=== PATIENT | male | born 1940 | race Caucasian/White ===

== ENCOUNTER 2021-07-24 23:28 | Observation (INO) ==
[2021-07-25] MEDS ORDERED: *HR* OxyCODONE Immed Rel 5 MG TABLET PO PRN (03:37)
[2021-07-25] MEDS ORDERED: *HR* HYDROcodone/Acet 5/325 mg TABLET PO PRN (03:37)
[2021-07-25] MEDS ORDERED: Ondansetron ODT 4 MG TAB.RAPDIS SL PRN (03:37)
[2021-07-25] MEDS ORDERED: Naloxone 0.4 MG/ML INJ IVP PRN (03:37)
[2021-07-25] MEDS ORDERED: Melatonin 3 MG TABLET PO PRN (03:37)
[2021-07-25] MEDS ORDERED: Acetaminophen 325 MG TABLET PO PRN (03:37)
[2021-07-25 05:51] LABS: Basophils % 0.3 %; Hematocrit 34.6 % (37.5-50.1); Hemoglobin 11.8 g/dL (12.9-16.9); Immature Granulocytes % 0.6 % (0-4); Immature Platelets 2.3 % (1.1-6.1); Lymphocytes # 0.7 K/mcL (0.6-4.6); Lymphocytes % 20.4 %; Mean Corpuscular HGB Conc 34.1 g/dL (31.6-35.5); Mean Corpuscular Hemoglobin 31.2 pg (28.0-33.3); Mean Corpuscular Volume 91.5 fL (83.0-100.0); Mean Platelet Volume 9.5 fL (9.4-12.4); Monocytes # 0.3 K/mcL (0.0-1.3); Monocytes % 9.6 %; Neutrophils # 2.4 K/mcL (1.6-8.9); Platelet Count 106 K/mcL (140-400); Red Blood Count 3.78 M/mcL (4.19-5.50); Red Cell Distribution Width 15.8 % (11.5-14.5); Segmented Neutrophils % 69.1 %; White Blood Count 3.4 K/mcL (4.3-11.1)
[2021-07-25 05:59] LABS: INR 1.3
[2021-07-25 06:01] LABS: Activated Partial Thrombo Time 39.5 Seconds (26.0-36.0)
[2021-07-25 06:09] LABS: Alanine Aminotransferase 14 Units/L (7-52); Albumin 2.4 g/dL (3.5-5.7); Albumin/Globulin Ratio 0.7 (1.1-2.2); Alkaline Phosphatase 60 Units/L (34-104); Aspartate Amino Transferase 26 Units/L (13-39); BUN/Creatinine Ratio 20 (6-26); Bilirubin,Total 0.7 mg/dL (0.3-1.0); Blood Urea Nitrogen 21 mg/dL (8-23); Calcium 7.8 mg/dL (8.6-10.3); Carbon Dioxide 34 mEq/L (23-29); Chloride 94 mEq/L (98-107); Globulin 3.3 g/dL (2.4-3.5); Glucose 92 mg/dL (70-105); Osmolality,Calculated 283 (280-300); Potassium 3.9 mEq/L (3.5-5.1); Sodium 135 mEq/L (136-145); Total Protein 5.7 g/dL (6.4-8.9); eGFR For African Americans > 60 (> 60); eGFR For Non-African Americans > 60 (> 60)
[2021-07-25 06:25] LABS: Adenovirus F 40/41 PCR Not detected (Not detect); Astrovirus PCR Not detected (Not detect); Campylobacter by PCR Not detected (Not detect); Cryptosporidium by PCR Not detected (Not detect); Cyclospora cayetanensis PCR Not detected (Not detect); E. coli O157 by PCR Not detected (Not detect); Entamoeba histolytica PCR Not detected (Not detect); Enteroaggregative E.coli(EAEC) Not detected (Not detect); Enteropathogenic E.coli(EPEC) Not detected (Not detect); Enterotoxigenic E.coli (ETEC) Not detected (Not detect); Giardia lamblia PCR Not detected (Not detect); Norovirus GI/GII PCR Not detected (Not detect); Plesiomonas shigelloides PCR Not detected (Not detect); Rotavirus A PCR Not detected (Not detect); Salmonella PCR Not detected (Not detect); Sapovirus PCR Not detected (Not detect); Shig/EnteroinvasiveE coli EIEC Not detected (Not detect); Shigalike tox-prod E coli STEC Not detected (Not detect); Vibrio PCR Not detected (Not detect); Vibrio cholerae PCR Not detected (Not detect); Yersinia enterocolitica PCR Not detected (Not detect)
[2021-07-25 06:26] LABS: C.difficile Toxin A/B Gene PCR DETECTED (Not detect)
[2021-07-25] MEDS ORDERED: *HR* HYDROcodone/Acet 5/325 mg TABLET GTUBE PRN (08:46)
[2021-07-25] MEDS ORDERED: Melatonin 3 MG TABLET GTUBE PRN (08:47)
[2021-07-25] MEDS ORDERED: Furosemide 20 MG TABLET PO SCH (09:00)
[2021-07-25] MEDS ORDERED: Vancomycin Oral Soln 125 MG/2.5 ML UDC PO SCH (09:00)
[2021-07-25] MEDS: Furosemide Oral Soln 40 MG/4 ML UDC GTUBE SCH (09:45)
[2021-07-25] MEDS: Vancomycin Oral Soln 125 MG/2.5 ML UDC GTUBE SCH ×4 (09:46→21:49)
[2021-07-25] MEDS: levETIRAcetam 500 MG/5 ML UDC GTUBE SCH ×2 (12:04→21:49)
[2021-07-25 15:11] LABS: Basophils % 0.3 %; Hemoglobin 10.9 g/dL (12.9-16.9); Immature Granulocytes % 0.3 % (0-4); Mean Corpuscular Volume 92.5 fL (83.0-100.0)
[2021-07-25 15:13] LABS: Hematocrit 33.4 % (37.5-50.1); Immature Platelets 2.6 % (1.1-6.1); Lymphocytes # 0.6 K/mcL (0.6-4.6); Lymphocytes % 18.6 %; Mean Corpuscular HGB Conc 32.6 g/dL (31.6-35.5); Mean Corpuscular Hemoglobin 30.2 pg (28.0-33.3); Mean Platelet Volume 9.8 fL (9.4-12.4); Monocytes # 0.4 K/mcL (0.0-1.3); Neutrophils # 2.3 K/mcL (1.6-8.9); Red Blood Count 3.61 M/mcL (4.19-5.50); Red Cell Distribution Width 15.7 % (11.5-14.5); Segmented Neutrophils % 68.8 %; White Blood Count 3.3 K/mcL (4.3-11.1)
[2021-07-25 15:14] LABS: Platelet Count 97 K/mcL (140-400)
[2021-07-25] MEDS: *HR* OxyCODONE Immed Rel 5 MG TABLET GTUBE PRN (21:50)
[2021-07-26 00:16] LABS: Hemoglobin 9.8 g/dL (12.9-16.9); Red Cell Distribution Width 15.8 % (11.5-14.5)
[2021-07-26 00:18] LABS: Basophils % 0.4 %; Hematocrit 30.3 % (37.5-50.1); Immature Granulocytes % 0.4 % (0-4); Immature Platelets 2.8 % (1.1-6.1); Lymphocytes # 0.7 K/mcL (0.6-4.6); Lymphocytes % 24.2 %; Mean Corpuscular HGB Conc 32.3 g/dL (31.6-35.5); Mean Corpuscular Volume 92.7 fL (83.0-100.0); Mean Platelet Volume 10.1 fL (9.4-12.4); Monocytes # 0.3 K/mcL (0.0-1.3); Monocytes % 12.3 %; Neutrophils # 1.7 K/mcL (1.6-8.9); Platelet Count 88 K/mcL (140-400); Red Blood Count 3.27 M/mcL (4.19-5.50); Segmented Neutrophils % 62.7 %; White Blood Count 2.7 K/mcL (4.3-11.1)
[2021-07-26] MEDS: *HR* OxyCODONE Immed Rel 5 MG TABLET GTUBE PRN (05:28)
[2021-07-26] MEDS ORDERED: Apixaban 5 MG TABLET PO SCH (09:00)
[2021-07-26] MEDS: Furosemide Oral Soln 40 MG/4 ML UDC GTUBE SCH (09:54)
[2021-07-26] MEDS: Vancomycin Oral Soln 125 MG/2.5 ML UDC GTUBE SCH (09:54)
[2021-07-26 11:40] VITALS: BP 98/63; PULSE 69; TEMP 97.7; O2SAT 93
[2021-07-26] MEDS: levETIRAcetam 500 MG/5 ML UDC GTUBE SCH (12:24)
== END 2021-07-26 13:41 | disposition home health service (06) ==
LOC: 3ANU → SUATTDRO 07-25 01:40
PROVIDERS: ADMIT Internal Medicine; ATTEND Hospitalist